=== PATIENT | female | born 1985 | race Caucasian/White ===

== ENCOUNTER 2018-01-29 15:29 | Emergency (ER) | payer BC ==
[~2018-01-29] VITALS: Ht 157.5 cm; Wt 66.0 kg
[~2018-01-29 15:29] MED LIST: DOXY100T PO; Z.0.NO CURRENT MEDS
[2018-01-29 15:34] VITALS: BP 128/80; PULSE 75; RESP 18; TEMP 99.3; O2SAT 100
--- NOTE | 2018-01-29 16:05 | RADRPT ---
EXAM DATE/TIME: 01/29/2018 15:52 [place] COMPARISON: No previous studies available for comparison. INDICATIONS : Right foot pain after fall. MEDICAL HISTORY : None. SURGICAL HISTORY : None. ENCOUNTER: Initial ACUITY: 1 day PAIN SCORE: 10/10 LOCATION: Right lateral foot, 5th digit. FINDINGS: There is healing fracture of the distal fifth metacarpal this has the appearance of the stress fractu re. Alignment anatomic. No other fractures are appreciated. CONCLUSION: Stress fracture or subacute fracture distal fifth metatarsal. Yoni Park MD FACR on January 29, 2018 at 15:59 Board Certified Radiologist. This report was verified electronically.
--- NOTE | 2018-01-29 16:07 | PD ---
HPI Chief Complaint: Injury Time Seen by Provider: 15:37 Travel History International Travel<30 days: No Contact w/Intl Traveler<30days: No Traveled to known affect area: No History of Present Illness HPI 32-year-old female presents to the emergency room for evaluation of right foot pain after injuring earlier today. Patient states she was playing football and took off quickly from a pivot to catch the ball when she felt immediate and severe pain in her foot. States she has not been able to walk on it since then without pain. Pain is localized to the right lateral portion and radiates into her ankle. She took a few ibuprofen which moderately relieves symptoms. She denies paresthesias. No chronic medical conditions or daily medications. PFSH Past Medical History ADHD: Yes Anxiety: Yes Depression: Yes Diabetes: No Diminished Hearing: No Integumentary: Yes (MULTIPLE SCABS ON ENTIRE BODY AND TRACK CAICEDO FROM IV DRUG ABUSE) Seizures: Yes (PT STATES " I HAD A SEIZURE 2 DAYS AGO BECAUSE OF NOT HAVING XANAX") ?: Not LMP: 01/23/18 : 1 Para: 1 : 1 Past Surgical History Section: Yes (2005) Tonsillectomy: Yes Social History Alcohol Use: No Tobacco Use: Yes (1 ppd) Substance Use: Yes (CRYSTAL METH, XANAX, OXYCODONE, METHADONE) Allergies-Medications (Allergen,Severity, Reaction): Coded Allergies: Sulfa (Sulfonamide Antibiotics) (Unverified Allergy, Severe, Nausea/ Vomiting, 01/29/18) codeine (Unverified Allergy, Severe, Anaphylaxis, 01/29/18) erythromycin base (Unverified Allergy, Severe, HIVES, 01/29/18) penicillin G (Unverified Allergy, Severe, CHILDHOOD REACTION, 01/29/18) Reported Meds & Prescriptions Reported Meds & Active Scripts Active No Active Prescriptions or Reported Medications Review of Systems Except as stated in HPI: all other systems reviewed are Neg Physical Exam Narrative GENERAL: Well-nourished, well-developed female no acute distress. Afebrile. Ambulatory. SKIN: Focused skin assessment warm/dry. No erythema or ecchymosis. HEAD: Normocephalic. EYES: No scleral icterus. No injection or drainage. NECK: Supple, trachea midline. No JVD or lymphadenopathy. CARDIOVASCULAR: Regular rate and rhythm without murmurs, gallops, or rubs. RESPIRATORY: Breath sounds equal bilaterally. No accessory muscle use. MUSCULOSKELETAL: No cyanosis. Mild edema of the right lateral foot. Full range of motion the foot. 2+ dorsalis pedis pulse. Moderate tenderness to palpation in the right metatarsal. Data Data Last Documented VS Vital Signs Date Time Temp Pulse Resp B/P (MAP) Pulse Ox O2 Delivery O2 Flow Rate FiO2 01/29/18 15:34 99.3 75 18 128/80 (96) 100 Orders Orders Foot, Complete ([id number]) (01/29/18 ) Splint Or Brace Apply/Monitor (01/29/18 16:07) [facility] Medical Decision Making Medical Screen Exam Complete: Yes Emergency Medical Condition: Yes Medical Record Reviewed: Yes Differential Diagnosis Fracture, sprain, contusion, dislocation Narrative Course 32-year-old female presents to the emergency room for evaluation of right foot pain and swelling after injuring it earlier today. Patient took off quickly from a pivot and had immediate pain in her proximal metatarsal. Physical exam reveals very mild edema of the right fifth metatarsal with associated pain. No erythema or ecchymosis. Full range of motion of the foot. 2+ dorsalis pedis pulse. X-ray shows stress fracture. Patient placed in a posterior short leg splint. Told to follow-up with a primary care physician or duty engineer to return the emergency room for worsening symptoms. She understands and agrees to plan. Diagnosis Primary Impression: Fracture of fifth metatarsal bone Qualified Codes: S92.354A - Nondisplaced fracture of fifth metatarsal bone, right foot, initial encounter for closed fracture Referrals: Cornelia Sauceda DPPerri Additional Instructions: Rest and drink plenty of fluids. Keep splint on until follow-up. Take ibuprofen with food as directed, as needed for pain. Apply ice to the affected area for 20 minutes at a time, as needed for pain and swelling. Follow-up with a primary care physician. Return to the emergency room for worsening symptoms. Med/Other Pt SpecificInfo: Prescription(s) given Scripts No Active Prescriptions or Reported Meds Disposition: 01 DISCHARGE HOME Condition: Stable Yasemin Jenkins January 29, 2018 16:07
[2018-01-29] MEDS ORDERED: IBUP1TAB7 PO (16:21)
== END 2018-01-29 16:38 | disposition home or self-care (01) ==
LOC: NEPK 15:29
DX: S92.354A Nondisplaced fracture of fifth metatarsal bone, right foot, initial encounter for closed fracture (principal); F17.200 Nicotine dependence, unspecified, uncomplicated; X58.XXXA Exposure to other specified factors, initial encounter; Y93.61 Activity, american tackle football
CPT/HCPCS: 29515; 73630; 99283; E0113